=== PATIENT | female | born 1980 | race Caucasian/White ===

== ENCOUNTER 2017-08-12 07:54 | Day surgery (SDC) | payer BC, OTHER ==
[~2017-08-12] VITALS: Ht 165.1 cm; Wt 95.7 kg
[2017-08-12 08:07] VITALS: BP 116/77
--- NOTE | 2017-08-12 08:13 | NUR ---
PT TO BED 8. URINE CUP PROVIDED FOR SAMPLE.
--- NOTE | 2017-08-12 08:24 | NUR ---
ERMD AT BEDSIDE
--- NOTE | 2017-08-12 08:26 | NUR ---
37/F BIB FRIEND SENT BY DR. CLARI BURNHAM WITH C/O INTERMITTENT HEAVY VAGINAL BLEEDING SINCE 08/03. STS HAS INTERNITTENT BLEEDING X2-3MOS. ALSO C/O PRESSURE 6/10 INTERMITTENT LOWER BACK PAIN, BLE PAIN AND VAGINAL DISCOMFORT; PT ALSO STS SHE EXPEREIENCES CONSTANTLY DIZZINESS;DENIES N/V/D; SKIN IS PINK/WARM/DRY; AOX4 WITH EVEN AND STEADY GAIT; LUNGS CLEAR BL; RR ARE EVEN AND UNLABORED; PT DENIES ANY FEVER, CP, SOB, OR COUGH AT THIS TIME; VSS; PATIENT POSITIONED FOR COMFORT; HOB ELEVATED; PT IS NS ON CM; BED DOWN. ER MADE AWARE OF PT STATUS. NAD. ALL NEEDS MET AT THIS TIME. Addendum: 08/12/17 at 0904 by NICHOL 37/F BIB FRIEND SENT BY DR. CLARI BURNHAM WITH C/O INTERMITTENT HEAVY VAGINAL BLEEDING SINCE 08/03. STS HAS INTERNITTENT BLEEDING X2-3MOS. ALSO C/O PRESSURE 6/10 INTERMITTENT LOWER BACK PAIN, BLE PAIN AND VAGINAL DISCOMFORT; PT ALSO STS SHE EXPEREIENCES INTERMITTENT DIZZINESS X 1 DAY;DENIES N/V/D; SKIN IS PINK/WARM/DRY; AOX4 WITH EVEN AND STEADY GAIT; LUNGS CLEAR BL; RR ARE EVEN AND UNLABORED; PT DENIES ANY FEVER, CP, SOB, OR COUGH AT THIS TIME; VSS; PATIENT POSITIONED FOR COMFORT; HOB ELEVATED; PT IS NS ON CM; BED DOWN. ER MADE AWARE OF PT STATUS. NAD. ALL NEEDS MET AT THIS TIME.
[2017-08-12 09:02] LABS: BASOPHILS # (AUTO) 0.2 K/uL (0.00-0.22); BASOPHILS % (AUTO) 3.1 % (0.0-2.0); EOSINOPHILS # (AUTO) 0.3 K/uL (0-0.4); EOSINOPHILS % (AUTO) 5.5 % (0.0-4.0); HEMATOCRIT 33.6 % (36-48); HEMOGLOBIN 10.4 g/dL (12.0-16.0); LYMPHOCYTES # (AUTO) 1.8 K/uL (2.5-16.5); LYMPHOCYTES % (AUTO) 35.7 % (20.5-51.1); MEAN CORPUSCULAR HEMOGLOBIN 26 pg (27-31); MEAN CORPUSCULAR HGB CONC 31 g/dL (33-37); MEAN CORPUSCULAR VOLUME 84 fL (80-94); MONOCYTES # (AUTO) 0.3 K/uL (0.8-1.0); MONOCYTES % (AUTO) 5.5 % (1.7-9.3); NEUTROPHILS # (AUTO) 2.3 K/uL (1.8-7.7); NEUTROPHILS % (AUTO) 50.2 % (42.2-75.2); PLATELET COUNT (AUTO) 239 K/uL (140-450); RED BLOOD CELL COUNT(AUTO) 3.98 MIL/uL (4.20-5.40); RED CELL DISTRIBUTION WIDTH 13.8 % (11.6-13.7); WHITE BLOOD COUNT (AUTO) 4.9 K/uL (4.8-10.8)
[2017-08-12 09:29] LABS: ALBUMIN 3.6 g/dL (3.4-5.0); ANION GAP 12.1 (8-16); CARBON DIOXIDE 24.7 mmol/L (21-32); CREATININE 0.6 mg/dL (0.6-1.3); POTASSIUM 3.8 mmol/L (3.5-5.1); TOTAL BILIRUBIN 0.5 mg/dL (0.0-1.0)
[2017-08-12 09:46] LABS: PROTHROMBIN TIME 10.2 secs (10.8-13.4)
[2017-08-12 10:00] VITALS: BP 136/87
--- NOTE | 2017-08-12 10:00 | NUR ---
Patient will be admitted to care of TE[facility] LEV[facility]. Admited to OR then . Will go to room . Belongings list completed. Report to Gloria HEWITTvector control specialist.
[2017-08-12] MEDS ORDERED: PROPOFOL 200 MG/20 ML VIAL IV ONE (10:15)
[2017-08-12] MEDS ORDERED: ONDANSETRON 4 MG/2 ML VIAL IVP ONE (10:15)
[2017-08-12] MEDS ORDERED: MIDAZOLAM 2 MG/2 ML VIAL ONE (10:34)
[2017-08-12] MEDS ORDERED: fentaNYL 0.05 MG/ML VIAL ONE (10:34)
[2017-08-12] MEDS ORDERED: METOCLOPRAMIDE 10 MG/2 ML INJ VIAL IVP PRN (10:50)
[2017-08-12] MEDS ORDERED: MIDAZOLAM 2 MG/2 ML VIAL IV ONE (10:50)
[2017-08-12] MEDS ORDERED: IBUPROFEN 800 MG TAB PO PRN ×2 (10:50→12:00)
[2017-08-12] MEDS ORDERED: ONDANSETRON 4 MG/2 ML VIAL IVP PRN ×2 (10:50)
[2017-08-12] MEDS ORDERED: ACETAMINOPHEN/CODEINE 300/30MG 1 TAB PO PRN ×2 (10:50→13:00)
[2017-08-12] MEDS ORDERED: MORPHINE SULFATE 4 MG/ML SYR IVP PRN ×2 (10:50)
[2017-08-12] MEDS ORDERED: MORPHINE SULFATE 4 MG/ML SYR IM/IVP PRN ×2 (10:50→15:00)
[2017-08-12] MEDS ORDERED: MORPHINE SULFATE 2 MG/ML SYR IVP PRN (10:50)
[2017-08-12] MEDS ORDERED: MORPHINE SULFATE 4 MG/ML SYR ONE (11:07)
== END 2017-08-12 15:30 | disposition home or self-care (01) ==
LOC: MED 07:54 → MDS 09:19 → MFCC 09:36 → MDS 15:30
PROVIDERS: ATTEND Obstetrics & Gynecology
DX: N92.1 Excessive and frequent menstruation with irregular cycle (principal); E66.01 Morbid (severe) obesity due to excess calories; Z98.890 Other specified postprocedural states; Z79.899 Other long term (current) drug therapy; Z98.51 Tubal ligation status
CPT/HCPCS: 36415; 58120; 80053; 81025; 85025; 85610; 85730; 86886; 86900; 86901; 93005; 99285; J2250; J2270; J2405; J2704; J3010; J7120; 88305